=== PATIENT | female | born 1950 | race Caucasian/White ===

== ENCOUNTER 2016-03-06 12:44 | Emergency (ER) | payer OTHER ==
[2016-03-06 12:53] VITALS: TEMP 99.1; BMI 26.2
[2016-03-06 13:10] LABS: AUTOMATED BASOPHIL 1.2 % (0-2); AUTOMATED EOSINOPHIL 2.3 % (0-5); AUTOMATED LYMPH 36.3 % (17-44); AUTOMATED MONOCYTE 13.6 % (3-10); AUTOMATED NEUTROPHIL 46.6 % (45-76); MPV 8.7 fL (7.4-10.4)
--- NOTE | 2016-03-06 13:20 | EDPRACDOC ---
- General Information Chief Complaint: Neuro Symptoms/Deficits Stated Complaint: STROKE-LIKE SYMPTOMS Information Source: Patient, Family Mode of Arrival:: Car Home Medications: Home Medications Aspirin (Enteric Coated) [Ecotrin] 81 mg PO DAILY 05/01/13 Metoprolol Succinate [Toprol Xl] 50 mg PO DAILY 05/01/13 Simvastatin [Zocor] 20 mg PO QHS 05/01/13 Amitriptyline HCl 75 mg PO DAILY 03/06/16 Celecoxib [Celebrex] 200 mg PO DAILY 03/06/16 Dexamethasone 2 mg PO DAILY 03/06/16 Furosemide [Lasix] 20 mg PO DAILY 03/06/16 Oxycodone HCl [Oxycodone Immediate Release] 10 mg PO Q6H PRN 03/06/16 Oxycodone HCl [Oxycontin] 20 mg PO BID 03/06/16 Pregabalin [Lyrica] 200 mg PO TID 03/06/16 Allergies/Adverse Reactions: Allergies Allergy/AdvReac Type Severity Reaction Status Date / Time Sulfa (Sulfonamide Allergy Hives* Verified 03/06/16 12:50 Antibiotics) [Sulfa(Sulfonamide Antibiotics)] - History of Present Illness Exact Onset of Symptoms: Unknown Symptoms Started: Reports: Suddenly Symptoms: Reports: Difficulty walking, Slurred speech Symptoms Description: Improved Weakness: Bilateral: Generalized Associated signs and symptoms:: Denies: None, O, GI Bleed, Chest pain, Diarrhea , Fever, Headache, Nausea, Palpitations, Vomiting HPI: C/o slurred speech and balance issues starting around 8am today. Pt feels light headed when trying to ambulate. Pt states she feels fine, is A+O x 3. Med hx = Colon CA in remission, neuropathy, aortic valve replacement 2007. No blood thinner. ED Past Medical History - History Reviewed Yes Nurses notes reviewed and agree except as marked - Patient Medical History GI/ History: Reports: Urinary Tract Infection (JUST ATBS FOR UTI) Psychological History: Denies: Depression Systemic History: Reports: Cancer (colon), Anemia - Family Medical History Reports: Hypertension (DAD), Cancer (DAD-PROSTATE), Cardiac Disorders (BROTHER- VALVE REPLACEMENT). Denies: Diabetes, Stroke - Social Medical History Smoking Status: Former smoker EDM Review of Systems - Review of Systems ROS Negative Except as Marked: Yes All systems reviewed and were negative except as marked Constitutional: Weakness Cardiovascular: Edema (bilateral lower ext edema) Neurological: Dizziness, Speech Difficulty, Weakness - Physical Exam Constitutional: No apparent distress, Alert Oriented to: Time, Person, Place Last recorded Vital Signs: Last Vital Signs Temp 99.1 F 03/06/16 12:50 Pulse 90 03/06/16 13:14 Resp 18 03/06/16 13:14 BP 111/67 03/06/16 13:14 Pulse Ox 89 L 03/06/16 13:14 Oxygen Pulse Oxygen Saturation 89 O2 Device Room Air Oxygen Flow Rate Fraction of Inspired Oxygen ( FIO2) - HEENT Eye Exam: Normal TMJ: Normal Nose: No Symptoms Reported Neck: Normal - Respiratory/Cardiovascular Respiratory: Normal - CTA Cardiovascular: Normal - GI Tenderness: Non tender - Musculoskeletal Back: Normal Extremities: Pedal Edema (bilateral, tight), Pedal Pulse, Radial Pulse - Integumentary Skin: Normal - Neurologic Cranial Nerve: Normal Cerebellar: Normal Mood Description: Normal Thought: Coherent Perception: Normal NIH Stroke Scale Initial Evaluation Level of Consciousness: Alert LOC- Question: Answers Both Correctly LOC Commands: Both Task Correctly Best Gaze: Normal Visual: No Visual Loss Facial Palsy: Normal Movement Motor Arm LEFT: No Drift Motor Arm RIGHT: No Drift Motor Leg LEFT: No Drift Motor Leg RIGHT: No Drift Limb Ataxia: Unable to Assess (neuropathy) Sensory: Normal Best Language: No Aphasia Dysarthria: Normal Extinction and Inattention: No Abnormality (Neglect) Score: 0out of42 - Comment states opt having slurred speech. Pt speech dopes not appear to be slurred. - Results 03/06/16 13:00 03/06/16 13:00 WBC 5.8 xk/uL (3.8-10.8) 03/06/16 13:00 RBC 3.85 xM/uL (4.20-5.40) L 03/06/16 13:00 Hgb 11.6 g/dL (12.0-16.0) L 03/06/16 13:00 Hct 34.3 % (36-47) L 03/06/16 13:00 MCV 89 fL (81-99) 03/06/16 13:00 MCH 30.1 pg (27-32) 03/06/16 13:00 MCHC 33.8 g/dl (33-36) 03/06/16 13:00 RDW 14.8 % (11.5-14.5) H 03/06/16 13:00 Plt Count 158 xk/uL (130-400) 03/06/16 13:00 MPV 8.7 fL (7.4-10.4) 03/06/16 13:00 Neut % (Auto) 46.6 % (45-76) 03/06/16 13:00 Lymph % (Auto) 36.3 % (17-44) 03/06/16 13:00 Dewitt % (Auto) 13.6 % (3-10) H 03/06/16 13:00 Eos % (Auto) 2.3 % (0-5) 03/06/16 13:00 Baso % (Auto) 1.2 % (0-2) 03/06/16 13:00 Absolute Neuts (auto) 2.67 xk/uL (1.7-8.2) 03/06/16 13:00 Absolute Lymphs (auto) 2.09 xk/uL (0.65-4.75) 03/06/16 13:00 Lab Results 03/06/16 13:00 WBC 5.8 RBC 3.85 L Hgb 11.6 L Hct 34.3 L MCV 89 MCH 30.1 MCHC 33.8 RDW 14.8 H Plt Count 158 MPV 8.7 Neut % (Auto) 46.6 Lymph % (Auto) 36.3 Dewitt % (Auto) 13.6 H Eos % (Auto) 2.3 Baso % (Auto) 1.2 Absolute Neuts (auto) 2.67 Absolute Lymphs (auto) 2.09 - EKG EKG #1 EKG Time: 12:57 -: Yes EKG interpreted by me Rate: bpm: 103 Rhythm: ST ST: Normal Comparison: 08/01/07 ([facility]) - Diagnostic Imaging Head Image interpreted by: Radiologist EXAM: CT HEAD WITHOUT CONTRAST TECHNIQUE: Contiguous axial images were obtained from the base of the skull through the vertex without intravenous contrast. COMPARISON: Cervical spine CT 05/24/2010. FINDINGS: There is no evidence of acute intracranial hemorrhage, mass lesion, brain edema or extra-axial fluid collection. The ventricles and subarachnoid spaces are appropriately sized for age. There is no CT evidence of acute cortical infarction. There is mild patchy periventricular low-density, most likely due to chronic small vessel ischemic change. Intracranial vascular calcifications are noted. The visualized paranasal sinuses, mastoid air cells and middle ears are clear. The calvarium is intact. IMPRESSION: No evidence of acute intracranial process. Mild periventricular white matter disease, likely related to chronic small vessel ischemic changes. Electronically Signed By: Lennox Turner M.D. On: 03/06/2016 14:24 Chest Image interpreted by: Radiologist EXAM: CHEST 2 VIEW COMPARISON: 12/29/2014 FINDINGS: There is a right-sided Port-A-Cath in unchanged position. There is mild bilateral interstitial thickening. There is no focal parenchymal opacity. There is no pleural effusion or pneumothorax. The heart and mediastinal contours are unremarkable. The osseous structures are unremarkable. IMPRESSION: No active cardiopulmonary disease. Electronically Signed By: Linnette Jennings On: 03/06/2016 13:46 Other Image interpreted by: Radiologist EXAM: CT ANGIOGRAPHY CHEST WITH CONTRAST TECHNIQUE: Multidetector CT imaging of the chest was performed using the standard protocol during bolus administration of intravenous contrast. Multiplanar CT image reconstructions and MIPs were obtained to evaluate the vascular anatomy. CONTRAST: 80 mL Isovue 370 IV COMPARISON: Cardiac/ coronary CTA on 10/19/2014 at [facility] FINDINGS: The pulmonary arteries are well opacified. There is no evidence of acute or chronic pulmonary embolism. Prosthetic aortic valve present. The ascending thoracic aorta shows mild dilatation and measures 4.3 cm in greatest caliber. No evidence of aortic dissection. The heart size is within normal limits. Calcified plaque noted in the distribution of the LAD and left circumflex coronary arteries. Probable calcified plaque in the distribution of the RCA which is blurred. No pleural or pericardial fluid is identified. Lungs show evidence of pulmonary venous prominence likely reflecting pulmonary venous hypertension. No overt airspace edema is identified. No focal airspace consolidation, nodule or lymphadenopathy. No airway obstruction identified. Visualized upper abdominal structures are unremarkable. Mild spondylosis present of the thoracic spine. No evidence of thoracic fracture or bony lesion. Review of the MIP images confirms the above findings. IMPRESSION: 1. No evidence of pulmonary embolism. 2. Mild dilatation of the ascending thoracic aorta to 4.3 cm. Prosthetic aortic valve present. Recommend semi-annual imaging followup by CTA or MRA and referral to cardiothoracic surgery if not already obtained. This recommendation follows 2010 ACCF/AHA/AATS/ACR/ASA/SCA/SCAI/SIR/STS/SVM Guidelines for the Diagnosis and Management of Patients With Thoracic Aortic Disease. Circulation. 2010; 121: [id number] 3. Coronary atherosclerosis with 3 vessel distribution of calcified plaque. 4. Pulmonary venous hypertension without overt pulmonary edema. Electronically Signed By: Brandt Morrison M.D. On: 03/06/2016 16:33 - Additional Information Pt refuses to take xarelto which we were going to recommend until pt could talk to her road passenger firer regarding anticoagulation for aortic valve replacement and possible TIA's. Will advise to follow up with her road passenger firer quickly. Decision Time to Discharge: 17:54 - Departure Disposition: Home Condition: Stable Final Diagnosis: Transient ischemic attack Instructions: Transient Ischemic Attack (ED) Education/Counseling Given To: Patient, Family Member Education/Counseling Given Regarding: Diagnosis, Treatment, Prognosis, Follow Up Referrals: Lacy Verduzco MD [Primary Care Provider] - One Week Additional Instructions: Follow up quickly with your neurologist for further evaluation of TIA. Follow up with your road passenger firer regarding anticoagulation for aortic valve replacement.Take 325mg of aspirin daily to help prevent further transient ischemic attacks. Return to ED for any new or worsening symptoms.
[2016-03-06 13:21] LABS: BLOOD UREA NITROGEN 20 MG/DL (7-17); CALC CORRECTED 9.1 MG/DL (8.4-10.2); CALCIUM 8.7 MG/DL (8.4-10.2); CALCULATED OSMOLALITY 271 MOs/Kg (270-290); CHLORIDE 104 mEq/L (98-107); GLUCOSE 91 MG/DL (70-99); SODIUM LEVEL 139 mEq/L (137-146); TOTAL PROTEIN 6.6 G/DL (6.3-8.2)
[2016-03-06 13:23] LABS: PARTIAL THROMB. TIME 25.2 SEC (22-35)
--- NOTE | 2016-03-06 13:49 | DIRPT ---
CLINICAL DATA: Shortness breath, slurred speech EXAM: CHEST 2 VIEW COMPARISON: 12/29/2014 FINDINGS: There is a right-sided Port-A-Cath in unchanged position. There is mild bilateral interstitial thickening. There is no focal parenchymal opacity. There is no pleural effusion or pneumothorax. The heart and mediastinal contours are unremarkable. The osseous structures are unremarkable. IMPRESSION: No active cardiopulmonary disease. Electronically Signed By: Linnette Jennings On: 03/06/2016 13:46
[2016-03-06 14:10] LABS: LEUKOCYTES/URINE NEG (NEGATIVE); NITRITE/URINE NEG (NEGATIVE); RBC/URINE 0-2 (0-5); URINE OCCULT BLOOD NEG (NEG/TRACE)
--- NOTE | 2016-03-06 14:26 | DIRPT ---
CLINICAL DATA: Slurred speech with unsteady gait and confusion. History colon cancer. EXAM: CT HEAD WITHOUT CONTRAST TECHNIQUE: Contiguous axial images were obtained from the base of the skull through the vertex without intravenous contrast. COMPARISON: Cervical spine CT 05/24/2010. FINDINGS: There is no evidence of acute intracranial hemorrhage, mass lesion, brain edema or extra-axial fluid collection. The ventricles and subarachnoid spaces are appropriately sized for age. There is no CT evidence of acute cortical infarction. There is mild patchy periventricular low-density, most likely due to chronic small vessel ischemic change. Intracranial vascular calcifications are noted. The visualized paranasal sinuses, mastoid air cells and middle ears are clear. The calvarium is intact. IMPRESSION: No evidence of acute intracranial process. Mild periventricular white matter disease, likely related to chronic small vessel ischemic changes. Electronically Signed By: Lennox Turner M.D. On: 03/06/2016 14:24
[2016-03-06] MEDS ORDERED: NS 500 ML IV ONE (15:46)
[2016-03-06 15:50] LABS: ALLEN'S TEST PASS; TCO2 31.2 MMOL/L (23-27)
[2016-03-06 15:51] LABS: ABG Draw Site Right Radial
[2016-03-06] MEDS ORDERED: Pharmacy Review for Metformin - IV Contrast Given SCH (16:00)
--- NOTE | 2016-03-06 16:36 | DIRPT ---
CLINICAL DATA: Hypoxia and chronic shortness of breath. EXAM: CT ANGIOGRAPHY CHEST WITH CONTRAST TECHNIQUE: Multidetector CT imaging of the chest was performed using the standard protocol during bolus administration of intravenous contrast. Multiplanar CT image reconstructions and MIPs were obtained to evaluate the vascular anatomy. CONTRAST: 80 mL Isovue 370 IV COMPARISON: Cardiac/ coronary CTA on 10/19/2014 at [facility] FINDINGS: The pulmonary arteries are well opacified. There is no evidence of acute or chronic pulmonary embolism. Prosthetic aortic valve present. The ascending thoracic aorta shows mild dilatation and measures 4.3 cm in greatest caliber. No evidence of aortic dissection. The heart size is within normal limits. Calcified plaque noted in the distribution of the LAD and left circumflex coronary arteries. Probable calcified plaque in the distribution of the RCA which is blurred. No pleural or pericardial fluid is identified. Lungs show evidence of pulmonary venous prominence likely reflecting pulmonary venous hypertension. No overt airspace edema is identified. No focal airspace consolidation, nodule or lymphadenopathy. No airway obstruction identified. Visualized upper abdominal structures are unremarkable. Mild spondylosis present of the thoracic spine. No evidence of thoracic fracture or bony lesion. Review of the MIP images confirms the above findings. IMPRESSION: 1. No evidence of pulmonary embolism. 2. Mild dilatation of the ascending thoracic aorta to 4.3 cm. Prosthetic aortic valve present. Recommend semi-annual imaging followup by CTA or MRA and referral to cardiothoracic surgery if not already obtained. This recommendation follows 2010 ACCF/AHA/AATS/ACR/ASA/SCA/SCAI/SIR/STS/SVM Guidelines for the Diagnosis and Management of Patients With Thoracic Aortic Disease. Circulation. 2010; 121: [id number] 3. Coronary atherosclerosis with 3 vessel distribution of calcified plaque. 4. Pulmonary venous hypertension without overt pulmonary edema. Electronically Signed By: Brandt Morrison M.D. On: 03/06/2016 16:33
[2016-03-06 18:13] VITALS: BP 118/64; PULSE 85
== END 2016-03-06 18:10 | disposition home or self-care (01) ==
LOC: ED 12:44
DX: G45.9 Transient cerebral ischemic attack, unspecified (principal)
CPT/HCPCS: 36415; 36600; 70450; 71020; 71275; 80053; 81001; 82803; 83880; 84484; 85025; 85610; 85730; 93005; 96360; 96361; 99285